=== PATIENT | male | born 1940 | race Caucasian/White ===

== ENCOUNTER 2025-01-12 18:32 | Emergency (ER) | payer MEDICARE, OTHER, SELFPAY ==
[2025-01-12 18:38] VITALS: BP 135/79
[2025-01-12] MEDS: TORADOL 30 MG IM (19:40)
[2025-01-12] MEDS: VALIUM 5 MG PO ×2 (19:40→21:06)
[2025-01-12] MEDS: LIDOCAINE 4% PATCH 1 PATCH TOPICAL (19:41)
--- NOTE | 2025-01-12 20:11 | ED.GENMED ---
History of Present Illness
<Junior Esqueda PA-C - Last Filed: 01/12/25 21:19>
General
Chief Complaint: Back Pain
Source: patient and family
Time Seen by Provider: 01/12/25 18:55
History of Present Illness
History of Present Illness:
84-year-old male with past medical history of atrial fibrillation status post pacemaker, hypertension hyperlipidemia, known lumbar radiculopathy presenting to the emergency department for evaluation of right lower back pain that has been waxing and
waning for the better part of 6 years since he had a surgery completed which he states only gave him partial relief and will sometimes have flareups of pain noting that over the last week or 2 has had increased pain, radiating pain down his right
leg with paresthesia to the great toe and 2nd and 3rd digits with pain worsening despite receiving a morphine injection and Cohagen at a hospital in [place] where the patient lives. He is currently visiting this area for the holiday
as well as has family that lives in the area whom he is staying with. He states that the pain is not much different today but he has not had relief with the Cohagen and prednisone taper that he was provided with. He denies any new trauma, fevers,
bowel/urinary incontinence, saddle anesthesia, hx IVDA, hx DM.
Past History
<Junior Esqueda PA-C - Last Filed: 01/12/25 21:19>
Past History
ED Past Medical History: Arrthythmia, HTN and Hypercholesterolemia
ED Past Surgical History: Cardiac and Orthopedic
Social History
Tobacco: Non-smoker
Alcohol: Occasional
Drug: None
Personal:
Living: with family
Review of Systems
<Junior Esqueda PA-C - Last Filed: 01/12/25 21:19>
Review of Systems
All Other Systems: ROS reviewed and negative except as documented in HPI and ROS
Phy Exam
<Junior Esqueda PA-C - Last Filed: 01/12/25 21:19>
Physical Exam
Physical Exam:
GENERAL: Alert , in no apparent distress at rest but uncomfortable with movements
EYE: clear conjunctiva b/l
NECK: Supple
ENT: o/p clr, mmm.
BACK: Normal range of motion, no focal tenderness, no midline bony tenderness, no rashes
NEUROLOGICAL: Alert and oriented, no focal neuro deficits. Patellar deep tendon reflexes intact and equal bilaterally, sensation grossly intact and equal to light touch bilateral lower extremities
SKIN: Warm and dry, skin intact.
MUSCULOSKELETAL: No edema, well perfused. EHL intact bilaterally
PSYCH: Normal and appropriate interaction.
Scores
<Junior Esqueda PA-C - Last Filed: 01/12/25 21:19>
Heart Failure Risk
Heart Failure Risk Score: Not Applicable
Heart Score for Chest Pain Patients
STEMI patient?: Not applicable
Withdrawal Assessment of Alcohol
Withdrawal Assessment Completed?: Not applicable
Course
<Junior Esqueda PA-C - Last Filed: 01/12/25 21:19>
Orders/Labs/Results
Orders:
Orders
01/12/25 19:21
Diazepam [Valium] 5 mg PO NOW STA
Ketorolac [Toradol] 30 mg IM NOW STA
Lidocaine [Lidocaine 4% Patch] 1 patch TOPICAL NOW STA
Apply Lidocaine patch(s) to:: right lower back
CR Lumbar Spine Comp Min 4 Vw* Urgent
Comment:
Reason For Exam: right sided radicular back pain
01/12/25 20:13
Bladder Scan- Treatment ONCE
01/12/25 20:47
Diazepam [Valium] 5 mg PO NOW STA
Vital Signs
Initial and Last Documented VS:
Initial Vital Signs
Temp Pulse Resp BP Pulse Ox
99.0 F 60 20 135/79 97
01/12/25 18:38 01/12/25 18:38 01/12/25 18:38 01/12/25 18:38 01/12/25 18:38
Last Documented Vital Signs
Temp Pulse Resp BP Pulse Ox
99.0 F 60 20 135/79 97
01/12/25 18:38 01/12/25 18:38 01/12/25 18:38 01/12/25 18:38 01/12/25 20:13
<Cedric Pino DO - Last Filed: 01/13/25 02:20>
Orders/Labs/Results
Orders:
Orders
01/12/25 19:21
Diazepam [Valium] 5 mg PO NOW STA
Ketorolac [Toradol] 30 mg IM NOW STA
Lidocaine [Lidocaine 4% Patch] 1 patch TOPICAL NOW STA
Apply Lidocaine patch(s) to:: right lower back
CR Lumbar Spine Comp Min 4 Vw* Urgent
Comment:
Reason For Exam: right sided radicular back pain
01/12/25 20:13
Bladder Scan- Treatment ONCE
01/12/25 20:47
Diazepam [Valium] 5 mg PO NOW STA
Vital Signs
Initial and Last Documented VS:
Initial Vital Signs
Temp Pulse Resp BP Pulse Ox
99.0 F 60 20 135/79 97
01/12/25 18:38 01/12/25 18:38 01/12/25 18:38 01/12/25 18:38 01/12/25 18:38
Last Documented Vital Signs
Temp Pulse Resp BP Pulse Ox
99.0 F 60 20 135/79 97
01/12/25 18:38 01/12/25 18:38 01/12/25 18:38 01/12/25 18:38 01/12/25 20:13
<Junior Esqueda PA-C - Last Filed: 01/12/25 21:19>
MDM/Problems Addressed
Differential Diagnosis Includes:
Lumbar Radiculopathy
Spinal stenosis
Disc herniation/Nerve Impingement
Neurogenic Claudication
Abscess/osteomyelitis/discitis
Epidural hematoma
MDM/Problems Addressed:
84-year-old male presenting to ER for eval ration of back pain, ongoing issue for many years but today having worsening pain/radicular pain radiating into his foot. No focal neurologic deficits noted on exam. No signs of infection. No risk
factors for infection. Patient and family were hoping for MRI but advised that unfortunately unable to obtain this tonight. No focal tenderness but I did offer a trigger point injection. Will trial some pain relief with Toradol, Valium and
topical Lidoderm patch. Patient already does have an appointment scheduled with pain management and Ortho when he returns to [place]. Anticipate discharge home
<Junior Esqueda PA-C - Last Filed: 01/12/25 21:19>
*Radiology
Radiology exam reviewed: preliminary read by ED provider (Significant degenerative changes, questionable compression fracture of L5)
*Pulse Oximetry
SaO2: 97
Oxygen Mode of Delivery: Room air
Patient hypoxic: no
*Critical Care Note
Total Time (30-74mins, 75-104mins- exclusive of procedures): Not Applicable
<Junior Esqueda PA-C - Last Filed: 01/12/25 21:19>
Patient Management
Escalation/DeEscalation of care consider admission/obs:
X-ray with significant degenerative changes throughout the lumbar spine. Patient does note relief with Valium. Bladder scan shows no urinary retention. I do not have concern for any emergent pathologies however patient will likely need outpatient
MRI given his presenting symptoms and x-ray findings. Patient will follow-up with his providers once returning to [place].
ED Attending Note
<Jnuior Esqueda PA-C - Last Filed: 01/12/25 21:19>
-
Portions of this chart may have been created with voice recognition software.� Occasional wrong word or��sound alike� substitutions may have occurred due to the inherent limitations of voice recognition software.
<Cedric Pino, DO - Last Filed: 01/13/25 02:20>
ED Attending Note
Patient seen and examined by attending physician: Yes
I performed the substantive portion of visit, reviewed & personally made and approve the management plan that is documented in note by myself or ROSI.: Yes
ED Attending Note:
84-year-old male with a history of degenerative disease who presents with lumbar radiculopathy. Extend steroids, continue pain control. No evidence of vascular compromise. Normal dorsalis pedis pulses bilaterally. Okay for outpatient follow-up
Discharge Plan
Departure
Patient Disposition: Home (Routine Discharge)
Date of Disposition: 01/12/25
Time of Disposition: 20:38
Patient with high blood pressure during this ER visit?: Yes
Discharge Problem:
Lumbar radiculopathy, right
Instructions: Low Back Pain (DC)
Prescriptions:
New
diazepam [Valium] 5 mg tablet
5 mg PO BID PRN (Reason: muscle spasm) Qty: 12 0RF
methylprednisolone [Medrol (Julio)] 4 mg tablets,dose pack
4 mg PO DIRECTED Qty: 21 0RF
prednisone 10 mg Tablet
See Rx Instructions .ROUTE .COMPLEX Qty: 45 0RF
Rx Instructions:
Take By Mouth:
50 mg daily x3 days, 40 mg daily x3 days,
30 mg daily x3 days, 20 mg daily x3 days,
10 mg daily x3 days
Referrals:
JUDY,EVGENY [Other]
Interventions
Interventions:
*Risk Screen - Suicide Last Done: 01/12/25 18:38
*General Assessment Last Done: 01/12/25 21:04
*Neglect/Abuse Screening Last Done: 01/12/25 18:38
*ED- Fall Risk Assessment Last Done: 01/12/25 21:04
*ED COVID-19 Vaccine History Last Done: 01/12/25 21:04
*ED Influenza Vaccine History Last Done: 01/12/25 21:04
*Nursing Disposition Last Done: 01/12/25 21:38
ED-Musculoskeletal Assessment Last Done: 01/12/25 19:00
Discharge Date and Time
Discharge Date/Time: 01/12/25 21:40
Print Language: AMERICAN
== END 2025-01-12 21:40 | disposition home or self-care (01) ==
LOC: EMR 18:32
PROVIDERS: EMERGENCY PHYSICIAN Emergency Medicine
DX: M47.26 Other spondylosis with radiculopathy, lumbar region (principal); I48.91 Unspecified atrial fibrillation; E78.00 Pure hypercholesterolemia, unspecified; I10 Essential (primary) hypertension; Z95.0 Presence of cardiac pacemaker
CPT/HCPCS: 99283; 96372; 72110

== ENCOUNTER 2025-01-14 04:20 | Emergency (ER) | payer MEDICARE, OTHER, SELFPAY ==
[2025-01-14 04:23] VITALS: BP 117/74
[2025-01-14 04:47] VITALS: BP 99/72
[2025-01-14] MEDS: FLEET PHOSPHATE ENEMA-ADULT 135 ML RECTAL (05:09)
--- NOTE | 2025-01-14 05:48 | ED.GENMED ---
History of Present Illness
General
Chief Complaint: Bowel Problem
Source: patient and family
Exam Limitations: none
Time Seen by Provider: 01/14/25 04:30
Nursing documentation reviewed up to this point in time: agreed with
History of Present Illness
History of Present Illness:
Pt currently being treated for sciatic lower back pain, presents to ED secondary to inability to bowel movement despite urge over the past one week, after starting narcotic pain medication. Denies fever/chills. Denies abdominal pain. Denies
nausea/vomiting. Pt states that he has difficult time with bowel movements in the past, but never this severe.
Past History
Past History
ED Past Medical History: Arrthythmia, HTN and Hypercholesterolemia
ED Past Surgical History: Cardiac and Orthopedic
Social History
Tobacco: Non-smoker
Alcohol: Occasional
Drug: None
Personal:
Living: with family
Review of Systems
Review of Systems
Allergies reviewed?: Yes
All Other Systems: ROS reviewed and negative except as documented in HPI and ROS
Constitutional: Reports no symptoms
ABD/GI: Reports constipated
: Reports no symptoms
Musculoskeletal: Reports no symptoms
Skin: Reports no symptoms
Neurological: Reports no symptoms
Phy Exam
Physical Exam
Physical Exam:
General: well nourished male, in mild distress. afebrile
Heent: nc/at. eomi
Abd: soft and nontender
Neuro: aao x 3. no focal neurological deficit
Skin: warm to touch. no rash
Psych: pleasant and cooperative
Course
Orders/Labs/Results
Orders:
Orders
01/14/25 04:47
Phosphate Enema [Fleet Phosphate Enema-Adult] 135 ml RECTAL NOW STA
01/14/25 05:48
Magnesium Citrate [Citroma] 300 ml PO ONCE ONE
Vital Signs
Initial and Last Documented VS:
Initial Vital Signs
Temp Pulse Resp BP Pulse Ox
98.4 F 61 14 117/74 99
01/14/25 04:23 01/14/25 04:23 01/14/25 04:23 01/14/25 04:23 01/14/25 04:23
Last Documented Vital Signs
Temp Pulse Resp BP Pulse Ox
98.4 F 62 14 99/72 99
01/14/25 04:23 01/14/25 05:15 01/14/25 05:15 01/14/25 04:47 01/14/25 05:49
MDM/Problems Addressed
MDM/Problems Addressed:
Rectal exam (JOEL Diaz, at bedside): manual exam with removal of large amount of hard stool. Pt subsequently given fleet enema, with large bowel movement, along with sig. improvement in symptoms. Pt will be discharged home in stable condition, to
the care of his family, with recommendation to continue bowel regimen at home, along with pcp f/u upon returning home to [place].
*Pulse Oximetry
SaO2: 99
Oxygen Mode of Delivery: Room air
Patient hypoxic: no
*Critical Care Note
Total Time (30-74mins, 75-104mins- exclusive of procedures): Not Applicable
ED Attending Note
-
Portions of this chart may have been created with voice recognition software.� Occasional wrong word or��sound alike� substitutions may have occurred due to the inherent limitations of voice recognition software.
Discharge Plan
Departure
Patient Disposition: Home (Routine Discharge)
Date of Disposition: 01/14/25
Time of Disposition: 05:49
Patient with high blood pressure during this ER visit?: No
Condition: Good
Discharge Problem:
Constipation
Instructions: Constipation, Adult (DC)
Prescriptions:
No Action
diazepam [Valium] 5 mg tablet
5 mg PO BID PRN (Reason: muscle spasm) Qty: 12 0RF
methylprednisolone [Medrol (Julio)] 4 mg tablets,dose pack
4 mg PO DIRECTED Qty: 21 0RF
prednisone 10 mg Tablet
See Rx Instructions .ROUTE .COMPLEX Qty: 45 0RF
Rx Instructions:
Take By Mouth:
50 mg daily x3 days, 40 mg daily x3 days,
30 mg daily x3 days, 20 mg daily x3 days,
10 mg daily x3 days
Referrals:
PRIVATE,PHYSICIAN [Family Provider, Internal Medicine]
Activity Restrictions/Additional Instructions:
As discussed, please follow-up with your primary care physician for reevaluation, upon returning home. Until then, recommend diet modification, increased fiber intake, along with continued use of stool softener as well as laxative.
Interventions
Interventions:
*Risk Screen - Suicide Last Done: 01/14/25 04:23
*General Assessment Last Done: 01/14/25 04:23
*Neglect/Abuse Screening Last Done: 01/14/25 04:23
*ED- Fall Risk Assessment Last Done: 01/14/25 04:38
*ED COVID-19 Vaccine History Last Done: 01/14/25 04:38
*ED Influenza Vaccine History Last Done: 01/14/25 04:38
*Nursing Disposition Last Done: 01/14/25 06:11
AH-Jkijdv-Sjlrppcizx Assessment Last Done: 01/14/25 04:38
Discharge Date and Time
Discharge Date/Time: 01/14/25 06:12
Print Language: VIET[place]ESE
[2025-01-14] MEDS: CITROMA 300 ML PO (05:59)
== END 2025-01-14 06:12 | disposition home or self-care (01) ==
LOC: EMR 04:20
PROVIDERS: EMERGENCY PHYSICIAN Emergency Medicine
DX: K59.00 Constipation, unspecified (principal); E78.00 Pure hypercholesterolemia, unspecified; I10 Essential (primary) hypertension
CPT/HCPCS: 99283